=== PATIENT | male | born 1990 | race Caucasian/White ===

== ENCOUNTER 2016-07-23 22:48 | Emergency (ER) | payer OTHER ==
[~2016-07-23] VITALS: Ht 177.8 cm; Wt 29.5 kg
[~2016-07-23 22:48] MED LIST: ANTIVERT25 MG PO; ONDANSETRON HCL4 M2 PO
[2016-07-24] MEDS ORDERED: OSELB75 PO (00:16)
[2016-07-24 00:21] VITALS: BP 105/66
== END 2016-07-24 00:30 | disposition home or self-care (01) ==
LOC: ER 22:48
DX: R68.89 Other general symptoms and signs (principal); R51 Headache; F17.210 Nicotine dependence, cigarettes, uncomplicated